=== PATIENT | male | born 1985 | race Caucasian/White ===

== ENCOUNTER 2016-09-19 16:12 | Emergency (ER) | payer OTHER ==
[~2016-09-19 16:12] MED LIST: DOXY100T PO; SULF1TAB47 PO; TYLE3 PO; ZIPR20 PO
[2016-09-19 16:28] VITALS: BP 164/90; PULSE 78; RESP 18; TEMP 98.3; O2SAT 98
[2016-09-19] MEDS ORDERED: TRAM50TA PO (17:03)
[2016-09-19] MEDS ORDERED: ROBA750T PO (17:04)
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
== END 2016-09-19 17:19 | disposition home or self-care (01) ==
LOC: PHEFT 16:12
DX: G58.9 Mononeuropathy, unspecified (principal); F43.10 Post-traumatic stress disorder, unspecified
CPT/HCPCS: 99284

== ENCOUNTER 2016-10-04 16:19 | Emergency (ER) | payer OTHER ==
[~2016-10-04] VITALS: Ht 182.9 cm; Wt 80.0 kg
[~2016-10-04 16:19] MED LIST changes: -DOXY100T PO; +ROBA750T PO; -SULF1TAB47 PO; +TRAM50TA PO; -TYLE3 PO; -ZIPR20 PO
[2016-10-04 16:29] VITALS: BP 169/103; PULSE 82; RESP 16; TEMP 98; O2SAT 99
[2016-10-04] MEDS ORDERED: KETOROLAC TROMETHAMINE 60 MG/2 ML (IM) VIAL IM ONE (17:15)
[2016-10-04] MEDS ORDERED: DICL50TA PO (17:23)
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
== END 2016-10-04 17:32 | disposition home or self-care (01) ==
LOC: PHEFT 16:19
DX: S46.311A Strain of muscle, fascia and tendon of triceps, right arm, initial encounter (principal); X58.XXXA Exposure to other specified factors, initial encounter; Y93.89 Activity, other specified; Y92.9 Unspecified place or not applicable; F43.10 Post-traumatic stress disorder, unspecified
CPT/HCPCS: 96372; 99284; J1885